=== PATIENT | female | born 1960 | race Caucasian/White ===

== ENCOUNTER 2024-04-24 10:19 | Outpatient (CLI) | payer OTHER, SELFPAY | END 2024-04-24 10:20 | disposition home or self-care (01) | LOC: AMB 05-22 13:25 | PROVIDERS: PCP Physician Assistant Medical; Visit Provider Student in an Organized Health Care Education/Training Program | DX: S89.92XA Unspecified injury of left lower leg, initial encounter (principal); V09.9XXA Pedestrian injured in unspecified transport accident, initial encounter; Y92.481 Parking lot as the place of occurrence of the external cause | CPT/HCPCS: A0998 ==

== ENCOUNTER 2024-04-24 11:23 | Emergency (ER) | payer OTHER, SELFPAY ==
[2024-04-24 11:36] VITALS: BP 151/95; PULSE 87; RESP 16; TEMP 36.4; O2SAT 98; BMI 19.2
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
[2024-04-24 13:00] VITALS: BP 130/71; PULSE 73; RESP 16; O2SAT 99
== END 2024-04-24 13:24 | disposition home or self-care (01) ==
PROVIDERS: Emergency Provider Student in an Organized Health Care Education/Training Program; PCP Physician Assistant Medical
DX: M79.605 Pain in left leg (principal)
CPT/HCPCS: 73552; 99283